=== PATIENT | male | born 1975 | race Caucasian/White ===

== ENCOUNTER → 2017-03-09 | Day surgery (SDC) | payer OTHER ==
[~2017-03-09] MED LIST: CLARITIN10 M3 PO; REPATHA SY140 MG/1 M SUBQ
--- NOTE | ~2017-03-09 | OR ---
Unit #: [id number] #: [id number] Patient: RABIA FUENTES [id number] [address] [address] [id number] MR#: [id number] NAME: RABIA FUENTES ROOM: Date of Procedure: 03/09/2017 Admission Date: 03/09/2017 Surgeon: Lino Reese M.D. : 1975 Attending Physician: Lino Reese M.D. Primary Care Physician: Santiago Boland M.D. OPERATIVE REPORT PREOPERATIVE DIAGNOSIS Right inguinal hernia. POSTOPERATIVE DIAGNOSIS Indirect right inguinal hernia. PROCEDURE PERFORMED Laparoscopic preperitoneal inguinal hernia repair of right inguinal hernia. CRIME SCENE SPECIALIST None. ANESTHESIA General anesthesia. ESTIMATED BLOOD LOSS Minimal. IV FLUIDS 800 crystalloid. COMPLICATIONS None. INDICATIONS FOR PROCEDURE The patient is a 41-year-old gentleman with a bulge in his right groin consistent with an inguinal hernia. DESCRIPTION OF PROCEDURE The patient was taken to the operative theater and placed in supine position. General anesthesia was induced. The abdomen was prepped and draped. Infraumbilical incision was then made. A small incision was made in the anterior sheath. I created the preperitoneal space with blunt dissection on the right. A Veress needle was placed intra-abdominally. The abdomen was insufflated to 15 mmHg with CO2. I then placed a 5-mm port. The patient was placed in Trendelenburg. I identified a right-sided indirect inguinal hernia. No left-sided hernia. I saw no other abnormalities. The pneumoperitoneum was released. Using the Auto[employer] balloon dissection system, I created the preperitoneal space in the right side only. I placed two 5-mm ports in the midline. I dissected the right groin, identifying the lateral space. Unit #: [id number] #: [id number] Patient: RABIA FUENTES The epigastrics had been draped down somewhat in my field of vision. Thus, I doubly hemoclipped them and divided them. I identified the cord. The cord was skeletonized. The hernia sac was from the cord and reduced. I identified Moshe ligament. I placed a large 3DMax mesh into position. This was anteriolized and covered the direct and indirect spaces nicely. I then secured this to Moshe ligament as well as lateral anterior musculature with a SorbaFix Tacker. Hemostasis was adequate. I released the pneumopreperitoneum with care taken to avoid the peritoneum sliding posterior to the mesh. I then removed the ports and closed the fascia with 0 Vicryl and skin with 4-0 Vicryl. The patient tolerated the procedure well and sent to recovery room in good condition. Dictated by... Deric Becerra/krisnha TD: 03/09/2017 15:53 JOB #: [id number] OPERATIVE REPORT Page 1 of 1 X Lino Reese MD X PROCEDURE OPERATIVE NOTE
== END | disposition home or self-care (01) ==
LOC: CSUR 10:00
DX: K40.90 Unilateral inguinal hernia, without obstruction or gangrene, not specified as recurrent (principal); E78.5 Hyperlipidemia, unspecified; Z87.442 Personal history of urinary calculi; Z80.0 Family history of malignant neoplasm of digestive organs; Z79.899 Other long term (current) drug therapy; Z90.79 Acquired absence of other genital organ(s)
CPT/HCPCS: C1781; J0690; J1644; J2250; J2405; J2710; J2765; J3010